=== PATIENT | male | born 1950 | race Caucasian/White ===

== ENCOUNTER 2018-06-27 01:29 | Inpatient (IN) ==
--- NOTE | 2018-06-27 02:16 | PROVIDER DOCUMENTATION ---
HPI-General Adult - General Chief Complaint: Seizure Stated Complaint: ams Time Seen by Provider: 06/27/18 01:54 Source: patient, family Allergies/Adverse Reactions: Patient Allergies Allergy/AdvReac Type Severity Reaction Status Date / Time No Known Allergies Allergy Verified 06/27/18 02:14 Home Medications: Home Medication List Medication Instructions Recorded Confirmed Last Taken Type Aspirin 81 mg PO DAILY 03/25/13 03/25/13 03/24/13 21:30 History Azithromycin [Zithromax Tri-Skyler] 500 mg PO DIRECTED #0 tablet 03/25/13 Unknown Rx Ibuprofen 800 mg PO TID #15 tablet 03/25/13 Unknown Rx Cephalexin [Keflex] 500 mg PO Q8HR #30 cap 06/27/18 Unknown Rx Oxycodone HCl/Acetaminophen 1 ea PO Q6H PRN PRN #15 tab 06/27/18 Unknown Rx [Percocet 5-325 mg Tablet] - History of Present Illness -Gen Adult Nature of Presenting Problems: Ws brought in by EMS. Family found him unresponsive. EMS called, and CPR was begun. However, after 3 compressions, he pushed them off. EMS says was awake and responsive on their arrival. Pt denies pain, says he does not know how he gou in the floor. Family reports that has hx of melanoma, with mets to the brain. Has been placed on prednisone for about a week Location of Pain/Injury: reports: none Pain Radiation: reports: no radiation Quality of Pain: reports: none Onset/Duration: reports: just prior to arrival Timing: reports: gone now Modifying Factors: improves with: nothing Associated Symptoms: reports: denies symptoms Similar Symptoms Previously?: No Recently seen or treated by another doctor?: Yes Review of Systems - Adult - REVIEW OF SYSTEMS - ADULT Constitutional: reports: no symptoms reported Eyes: reports: no symptoms reported Ears, Nose, Mouth & Throat: reports: no symptoms reported Cardiovascular: reports: no symptoms reported Respiratory: reports: no symptoms reported Gastrointestinal: reports: no symptoms reported Genitourinary: reports: no symptoms reported Musculoskeletal: reports: no symptoms reported Integumentary: reports: no symptoms reported Neurological: reports: see HPI Psychiatric: reports: no symptoms reported Endocrine: reports: no symptoms reported Hematologic/Lymphatic: reports: no symptoms reported Allergic/Immunologic: reports: no symptoms reported Past History - Adult - PAST MEDICAL HISTORY-ADULT Review of Records: reports: Medications Reviewed Other Conditions: reports: other (melanoma) Physical Exam-General - PHYSICAL EXAM-ADULT Initial Vital Signs Reviewed: Yes - CONSTITUTIONAL General Appearance: appears well - EYES Eyes: PERRL/EOMI, pink conjunctivae - HEAD, EARS, NOSE, MOUTH & THROAT HENMT: normocephalic/atraumatic, moist mucous membranes, normal ENT inspection, pharynx normal - NECK Neck: non-tender, full range of motion, supple - RESPIRATORY Respiratory: lungs clear, normal breath sounds, no pleuratic chest pain, no respiratory distress, no accessory muscle use - CARDIOVASCULAR Cardiovascular: normal peripheral pulses, regular rate, rhythm - GASTROINTESTINAL (ABDOMEN) Abdominal Exam: non tender, soft - MUSCULOSKELETAL Back Exam: normal inspection, no CVA tenderness, no vertebral tenderness Extremity: normal range of motion, non-tender, normal gait, normal inspection DTR: bicep (R): 2+, bicep (L): 2+, knee (R): 2+, knee (L): 2+, ankle (R): 2+, ankle (L): 2+ - SKIN Integumentary: normal color, normal turgor, warm/dry - NEUROLOGIC Neurologic: grossly normal, no motor/sensory deficits, other (CN II-XII intact) - PSYCHIATRIC Psych/Mental Status: normal mood/affect, normal thought content, normal thought process, oriented x 3 Progress - PLAN OF CARE/RESULTS Progress/Plan/Lab Results: Vital Signs - 8 hr 06/27/18 02:02 Temperature 98.3 F Pulse Rate 82 Respiratory Rate 20 Blood Pressure 137/91 O2 Sat by Pulse Oximetry 92 L Orders Category Date Time Status CHEST-PORTABLE [RAD] Stat Exams 06/27/18 02:[address] HEAD W/O CONTRAST [CT] Stat Exams 06/27/18 02:05 Ordered CBC WITH DIFF [HEME] Stat Lab 06/27/18 02:05 Uncollected COMPREHENSIVE METABOLIC PANEL [CHEM] Stat Lab 06/27/18 02:05 Uncollected D-DIMER [COAG] Stat Lab 06/27/18 02:05 Uncollected URINALYSIS W/POSS RFLX CULT [URINALYSIS] Stat Lab 06/27/18 02:05 Uncollected URINE DRUG SCREEN Stat Lab 06/27/18 02:05 Uncollected EKG [EKG] Stat Ther 06/27/18 02:10 Ordered Talked with Family again. He was found unresp in bed. EMS called, family was told to place in floor, begin CPR. There was no witnessed seizure. However, with hx, is strong liklihood that that is what had happened Result Diagrams: 06/27/18 02:01 06/27/18 02:01 - REASSESSMENT Reassessment #1 Time Reassessed: 04:30 (still awake and alert) Status: unchanged - XRAY 1 XRAY: Left XRAY Study: Knee XRAY Interpretation: neg per me 2 XRAY: Right XRAY Study: other (R 2nd toe) Impression: Abnormal XRAY Interpretation: dislocation of PIP 3 XRAY: Right XRAY Study: other (2nd toe) Impression: Normal XRAY Interpretation: good reduction - CT/MRI 1 CT Study: Head Impression: Abnormal CT Results: hemorrhagic met to L frontal lobe, with R shift, unchanged since prior exam - CONSULTS/PCP/HOSPITALIST Notification #1 *Consult/PCP/Hospitalist*: Monty Time Discussed: 04:40 Consult Disposition: Will see in ED, Admit Departure - Departure Date of Disposition Decision: 06/27/18 Time of Disposition Decision: 04:44 DIAGNOSIS: Toe laceration with complication Toe laceration Qualifiers: Encounter type: initial encounter Toe: lesser toe Damage to nail status: without damage Foreign body presence: without foreign body Laterality: right Qualified Code(s): S91.114A - Laceration without foreign body of right lesser toe(s) without damage to nail, initial encounter Open dislocation of toe of right foot Qualifiers: Encounter type: initial encounter Qualified Code(s): S93.104A - Unspecified dislocation of right toe(s), initial encounter; S91.104A - Unspecified open wound of right lesser toe(s) without damage to nail, initial encounter Disposition: HOME 01 Certified Medical Emergency: Emergent Condition: Stable Additional Freetext Instructions: ED Follow Up Instructions: You have been treated by a care provider in the Emergency Department. These instructions are being provided to you so you can have an understanding of how to care for yourself upon discharge. Upon discharge from the Emergency Department, you are responsible for making arrangements for follow-up care by a physician of your choice. Take all prescribed medications as directed. Return to the Emergency Department immediately for any new or worsening symptoms. You may call the Physician Referral phone number at [phone] to obtain a list of Physicians who are taking new patients. Follow up with your orthopedist Prescriptions: Cephalexin [Keflex] 500 mg PO Q8HR #30 cap Oxycodone HCl/Acetaminophen [Percocet 5-325 mg Tablet] 1 ea PO Q6H PRN PRN #15 tab PRN Reason: Pain Referrals and Follow-Ups: Miriam Thompson MD [Primary Care Provider] - - Critical Care Note This patient required my direct & personal management of CC.: No Attestation - Physician/ DOMI Attestation Patient care was provided by Advanced Practice Provider:: No The physician spent face to face time with patient:: Yes Advanced Practice Provider documentation review:: Supervising physician onsite and consulted in the evaluation and care of this patient. The physician did have a face to face encounter with the patient.
[2018-06-27 02:29] LABS: BASO# 0.03 X1000 (0.0-0.2); BASO% 0.2 % (0.0-0.8); EOS# 0.01 X1000 (0.0-0.7); EOS% 0.1 % (0.0-10.0); HEMATOCRIT 46.6 % (42.0-52.0); HEMOGLOBIN 15.8 g/dL (14.0-18.0); IMM GRAN# 0.56 X1000 (0.0-0.04); IMM GRAN% 3.2 % (0.0-0.5); LYMPH# 1.34 X1000 (1.2-3.4); LYMPH% 7.6 % (20.5-51.1); MCH 28.3 PG (27-31); MCHC 33.9 g/dL (33-37); MCV 83.4 FL (81-99); MONO% 6.8 % (1.7-9.3); MPV 9.1 FL (7.4-10.4); NEUT# 14.44 X1000 (1.4-6.5); NEUT% 82.1 % (42.2-75.2); PLT 358 X1000 (130-400); RBC 5.59 XMIL (4.7-6.1); RDW 14.2 % (11.5-14.5); WBC 17.58 X1000 (4.8-10.8)
[2018-06-27 02:49] LABS: AGAP 14; ALB/GLOB RATIO 1.4; ALBUMIN 3.7 g/dL (3.5-5.0); ALKALINE PHOSPHATASE 98 U/L (32-122); BUN 19 mg/dL (8-22); CALCIUM 8.2 mg/dL (8.8-10.2); CHLORIDE 99 mmol/L (98-107); COSMO 280; CREATININE 0.8 mg/dL (0.7-1.2); ESTIMATED GFR > 60; GLUCOSE 273 mg/dL (70-104); GOT 22 U/L (10-34); GPT 56 U/L (10-44); SODIUM 134 mmol/L (136-145); TCO2 21 mmol/L (25-35); TOTAL BILIRUBIN 0.37 mg/dL (0.20-1.00); TOTAL PROTEIN 6.4 g/dL (6.3-8.3)
[2018-06-27] MEDS ORDERED: KEPPRA 500 MG in NS 100 ML IV ONE (04:41)
--- NOTE | 2018-06-27 05:32 | HISTORY AND PHYSICAL ---
PRIMARY CARE PHYSICIAN: Dr. Thompson. CHIEF COMPLAINT: Altered mental status. HISTORY OF PRESENTING ILLNESS: A 67-year-old male with a history of melanoma with metastasis to the brain who apparently was brought to the emergency department because he was unresponsive. As per his , he was staring and not really responding. The patient was brought to the emergency department. It was suspected he possibly had a seizure. It seems that he had bit his tongue also. Due to his presenting symptoms, he will need admission for further management. At the time of my examination, the patient was somewhat drowsy but however he was responding to questions. He denied any headache, fever, chills, chest pain, shortness of breath or any weight changes. PAST MEDICAL HISTORY: Melanoma with metastasis to the brain. PAST SURGICAL HISTORY: None. ALLERGIES: No known drug allergies. CURRENT MEDICATIONS: Aspirin 81 mg p.o. daily. SOCIAL HISTORY: He denies any history of smoking, alcohol or illicit drug use. FAMILY HISTORY: No history of coronary disease. REVIEW OF SYSTEMS: Fourteen point review of systems is as in HPI. Other systems negative. PHYSICAL EXAMINATION: GENERAL: Cooperative friendly male. He is resting comfortably now. VITAL SIGNS: Temperature 98.3 degrees, pulse 82, respirations 18, and blood pressure 137/91. HEENT: Atraumatic, normocephalic. Extraocular movements intact. PERRLA. NECK: No masses. CHEST: Clear to auscultation. CARDIOVASCULAR: Regular rate and rhythm. ABDOMEN: Soft. Positive bowel sounds. EXTREMITIES: No edema. NEUROLOGIC: Somewhat sluggish, but he is alert and oriented x2. : No bladder distention. SKIN: Warm. LABORATORIES AND STUDIES: WBCs 17.58, hemoglobin 15.8, hematocrit 46.6, and platelets 358,000. Sodium 134, potassium 4, chloride 99, CO2 21, BUN is 19, creatinine 0.8, and glucose 273. ASSESSMENT: A 67-year-old male with a history of metastatic melanoma to the brain who had presented to the emergency department with a one day history of altered mental status. It was suspected he had a seizure. Subsequently, he will require admission for further management assessment. 1. Altered mental status. 2. Suspected seizure. 3. Metastatic melanoma to brain. PLAN: 1. We will admit patient to medical floor with telemetry. 2. Continue with neuro checks. 3. Put patient on seizure precautions. 4. Continue with Keppra. 5. We will consult Neurology. 6. We will also consult his oncologist. 7. Put patient on DVT prophylaxis with SCD's. 8. We will continue to follow and reassess. Make further recommendations based on patient's clinical course. cc: Herb Millan MD
[2018-06-27 05:45] LABS: URINE SOURCE CLEAN CATCH
[2018-06-27 05:49] LABS: BILIRUBIN URINE NEGATIVE (NEGATIVE); BLOOD URINE NEGATIVE (NEGATIVE); COLOR YELLOW; GLUCOSE URINE >1000 mg/dL (NEGATIVE); KETONE URINE TRACE mg/dL (NEGATIVE); LEUKOCYTES URINE NEGATIVE (NEGATIVE); NITRITE URINE NEGATIVE (NEGATIVE); PH URINE 5.5; PROTEIN URINE TRACE mg/dL (NEGATIVE); SP GRAVITY URINE 1.026; TURBIDITY URINE CLEAR (CLEAR); UROBILINOGEN URINE NORMAL (NORMAL)
[2018-06-27 05:50] LABS: UR EPITHELIAL CELLS <10 /HPF (<10); URINE BACTERIA NEGATIVE /HPF; URINE RBC <10 /HPF (<10); URINE WBC <10 /HPF (<10)
[2018-06-27 06:02] LABS: UR AMPHETAMINES QUAL NONE DETECTED (NONE DETECT); UR BARBITUATES QUAL NONE DETECTED (NONE DETECT); UR BENZODIAZEPIN QUAL NONE DETECTED (NONE DETECT); UR CANNABINOIDS QUAL NONE DETECTED (NONE DETECT); UR COCAINE QUAL NONE DETECTED (NONE DETECT); UR METHADONE QUAL NONE DETECTED (NONE DETECT); UR OPIATES QUAL NONE DETECTED (NONE DETECT); UR OXYCODONE QUAL NONE DETECTED (NONE DETECT); UR PCP QUAL NONE DETECTED (NONE DETECT)
--- NOTE | 2018-06-27 06:02 | Diag Imaging Result Doc PS360 ---
EXAM: CHEST-PORTABLE HISTORY: low satsa TECHNIQUE: Portable chest single view COMPARISON: 04/02/2017 FINDINGS: The lungs are well expanded. The heart is not enlarged. The vessels are not distended. There are no infiltrates. No effusion identified. IMPRESSION: Negative exam. Electronically signed by Chapin Cortés 06/27/2018 6:00 AM
--- NOTE | 2018-06-27 06:26 | Diag Imaging Result Doc PS360 ---
EXAM: CT HEAD W/O CONTRAST HISTORY: found in floor, hx of melanoma mets to brain TECHNIQUE: CT head without contrast COMPARISON: MRI from 06/19/2018 FINDINGS: There is a known left frontoparietal mass measuring approximately 3.0 x 3.9 cm. The mass is hyperintense. There is surrounding edema. This compresses the frontal horn of the left lateral ventricle and there is approximately 7 mm midline shift from left to the right. No other mass. No epidural or subdural hematoma. No subarachnoid hemorrhage. No sinus opacification. IMPRESSION: Large known left frontal mass which may be a hemorrhagic metastasis. No change from the recent MRI. A preliminary report was given at 3:17 AM This exam was performed using automated exposure control, adjustment of mA or kV according to patient size, and/or use of iterative reconstruction technique. Electronically signed by Chapin Cortés 06/27/2018 6:23 AM
[2018-06-27] MEDS ORDERED: TYLENOL PO PRN (07:37)
[2018-06-27] MEDS: KEPPRA 500 MG in NS 100 ML IV SCH ×2 (08:29→20:36)
[2018-06-27] MEDS: DECADRON IV SCH ×3 (13:15→20:36)
--- NOTE | 2018-06-27 15:22 | HEMO/ONC CONSULTATION ---
DATE: 06/27/2018 DATE OF SERVICE: 06/27/2018. REASON FOR CONSULTATION: Metastatic melanoma. HISTORY OF PRESENT ILLNESS: Mr. Weinberg is a [id number] male who is known to us as we have been treating him for metastatic melanoma. He most recently was found to have brain metastasis on an MRI dated June 19, 2018. The patient has been on oral steroids and actually has a pending appointment with neurosurgery, Dr. Chung, next week. Per the patient's , who is at bedside, the patient had an episode of nonresponsiveness. He actually bit his tongue. He was brought to the emergency department here for further evaluation and treatment. He is currently on IV Keppra. He is now responsive, but is still kind of confused. He is not sure who people are even though he has met them before. He also has aphasia. The patient is currently on Mekinist and Tafinlar. We have had them continue those medications which are treating his metastatic melanoma. The patient has followed up with radiation oncology on 06/23/2018. However, the plans are for the patient to proceed with likely surgical resection, but he needs to be evaluated by neurosurgery prior to having surgery. He is resting comfortably currently. PAST MEDICAL HISTORY: Metastatic melanoma with recent diagnosis of brain metastasis. He actually has a large solitary brain mass measuring 4 x 3.2 x 4 cm in the superior left frontal lobe with surrounding erythema, mass effect in the midline shift to the right up to 6 mm. PAST SURGICAL HISTORY: He has only had skin biopsies previously. No other major surgeries reported. SOCIAL HISTORY: The patient is . He has never smoked before. He denies any current alcohol use. He also denies any illicit drug use. FAMILY HISTORY: His mother is alive at the age of 87 and has dementia. His father is years ago from COPD. REVIEW OF SYSTEMS: 12 point review of systems has been completed. Negative except for as expressed in the HPI. PHYSICAL EXAM: Vital signs: Temperature 97.7, heart rate 64, respirations 18, blood pressure 118/77 and O2 saturation 98% on 2L nasal cannula. General: This is a male lying in his hospital bed. He has his and another family member at bedside. He is in no acute distress. HEENT: Normocephalic, atraumatic. Pupils are equal, round and reactive. Ears, nose, throat, mouth and mucosa appear to be normal. Cardiovascular: S1, S2 heard. No murmurs, rubs or gallops appreciated. Respiratory: Chest is clear with normal respiratory effort. No rhonchi, rales or wheezing noted. GI: Abdomen is obese but soft. Positive bowel sounds noted. Musculoskeletal: No abnormal bony abnormalities. Extremities: No edema. Neurological: The patient is alert. He is not oriented. He is not agitated. He is calm. He is suffering from some aphasia as well as short-term memory loss. LABS/STUDIES: White blood cells 17.8, hemoglobin 15.8 and hematocrit 46.6 with a platelet count of 358. Sodium 134, potassium 4.0, chloride 99, CO2 21, BUN 19, creatinine 0.[address] done on 06/27/2018, without contrast, showed a large known left frontal mass which may be a hemorrhagic metastasis. No change from the recent MRI. Chest x-ray done on 06/27/2018 is negative. ASSESSMENT AND PLAN: 1. Metastatic melanoma with recent diagnosis of a large solitary brain metastasis. The patient really needs neurosurgery evaluation. We do not have neurosurgery here at [facility]. He has a pending appointment with Dr. Chung on 07/01/2018. Unless we can get him transferred, then he will just have to keep that appointment. In the meantime, we will go ahead and restart him on dexamethasone IV 4 mg q. 6 hours. The patient will also need to continue with Keppra. Agree with neurology evaluation while he is here at the hospital. Would also recommend for the time being that the patient continue with his Tafinlar and Mekinist. Those could be held in the perioperative setting once a surgery date is actually planned. 2. Seizure. Likely secondary to brain mass. He is currently getting IV Keppra. Neurological evaluation is currently pending. No further seizure activity since he has been at the hospital per the patient and his 's report. 3. Leukocytosis. This is likely related to his steroids. He has been on p.o. dexamethasone as an outpatient. 4. Altered mental status. This is also secondary to his brain metastasis. Recommendations as per above. Thank you for consulting us on Mr. Weinberg. We will continue to follow along and adjust our treatment plan per his hospital course. Dictated by NAY Stover for Xi Deluca MD cc: Xi Deluca MD
[2018-06-27 20:49] VITALS: BP 113/83
--- NOTE | 2018-06-29 09:59 | DISCHARGE SUMMARY ---
ADMISSION DATE: 06/27/2018 DISCHARGE DATE: 06/27/2018 DISCHARGE DIAGNOSES: 1. Metastatic melanoma with recent diagnosis of a large solitary brain metastasis. 2. New-onset seizure. 3. Altered mental status. CONSULTATIONS: Dr. Xi Deluca from Hematology/Oncology. PROCEDURES: Head CT without contrast done on admission showed large known left frontal mass, which may be a hemorrhagic metastases, not changed from recent MRI. HOSPITAL COURSE: In brief, this is a 67-year-old with history of melanoma with metastasis to the brain, who was brought to the emergency department because he was found unresponsive. Apparently, he had a seizure at home. The CT shows results as above. Unfortunately, this patient was admitted to the hospital when he needed truly a neurosurgical evaluation. After evaluating this patient, we have been contacted by Dr. Deluca, who mentioned that this patient needs to have a neurosurgical evaluation emergently. We have tried to send this patient to [facility] and [facility], but there were no beds available. Dr. Deluca is coordinating with Dr. Barnes to try to transfer this patient to [facility] for a Neurosurgery evaluation. Finally, we were able to find a bed for him. The patient is going to be sent to [facility] to the Neurologic ICU. cc: Vu Alvarenga MD [facility]
== END 2018-06-27 22:55 | disposition short-term general hospital (02) | DRG 101 ==
LOC: SUPCPDRO → ED 01:29 → 3N 07:08 → SUATTDRO 07:08
PROVIDERS: ATTEND Internal Medicine
CPT/HCPCS: 70450; 71010; 71045; 80053; 80101; 80301; 80307; 80324; 80345; 80346; 80353; 80358; 80361; 80365; 81001; 83992; 85025; 85379; 93005; 96365; 99285; G0431; G0434; G0479; G0480; J1100; J1953